=== PATIENT | female | born 1990 | race Hispanic/Latino ===

== ENCOUNTER 2018-07-09 16:24 | Emergency (ER) | payer BC ==
[2018-07-09 16:29] VITALS: BP 132/83; PULSE 73; TEMP 98.1; O2SAT 95
[2018-07-09 16:52] VITALS: RESP 16
--- NOTE | 2018-07-09 17:44 | ED PDOC ---
HPI: Female Pain Time Seen by Provider: 07/09/18 17:10 Chief Complaint (Nursing): Female Genitourinary Chief Complaint (Provider): Vag bleeding History Per: Patient History/Exam Limitations: no limitations Additional Complaint(s): Pt who presents with vaginal bleeding with clots X 1 day, associated with crampy abdominal pain. No pain at present. Pt had blood work done on 07/07/18 beta hCG 26. Past Medical History Reviewed: Nursing Documentation, Vital Signs Vital Signs: Last Vital Signs Temp 98.1 F 07/09/18 16:40 Pulse 73 07/09/18 16:40 Resp 16 07/09/18 16:40 BP 132/83 07/09/18 16:40 Pulse Ox 95 07/09/18 16:40 - Medical History PMH: No Chronic Diseases - Surgical History Surgical History: No Surg Hx, Tonsillectomy (2016) - Family History Family History: States: Unknown Family Hx - Social History Current smoker - smoking cessation education provided: No Alcohol: None - Immunization History Hx Tetanus Toxoid Vaccination: No Hx Influenza Vaccination: No Hx Pneumococcal Vaccination: No - Allergies Allergies/Adverse Reactions: Allergies Allergy/AdvReac Type Severity Reaction Status Date / Time No Known Allergies Allergy Verified 07/09/18 16:48 Review of Systems Constitutional: Negative for: Fever Cardiovascular: Negative for: Chest Pain Respiratory: Negative for: Cough, Shortness of Breath Gastrointestinal: Positive for: Abdominal Pain. Negative for: Nausea, Vomiting, Diarrhea Genitourinary Female: Positive for: Vaginal Bleeding. Negative for: Dysuria, Hematuria, Vaginal Discharge Physical Exam - Reviewed Nursing Documentation Reviewed: Yes Vital Signs Reviewed: Yes - Physical Exam Appears: Positive for: Well, No Acute Distress Skin: Positive for: Normal Color, Warm, Dry Eye Exam: Positive for: Normal appearance, EOMI, PERRL Cardiovascular/Chest: Positive for: Regular Rate, Rhythm Respiratory: Positive for: Normal Breath Sounds Gastrointestinal/Abdominal: Positive for: Bowel Sounds, Soft, Tenderness (Mild R pelvic pain). Negative for: Guarding, Rebound Back: Positive for: Normal Inspection Extremity: Positive for: Normal ROM Neurologic/Psych: Positive for: Alert, Oriented - Laboratory Results Result Diagrams: 07/09/18 18:30 07/09/18 18:30 - ECG O2 Sat by Pulse Oximetry: 95 Medical Decision Making Medical Decision Makin yo with vaginal bleeding. - labs - pelvic ultrasound Labs and ultrasound findings discussed with patient in detail. Copy of labs and imaging given to patient. 20:[address] Strauss, recommends follow-up in 2 days for repeat bloodwork. Disposition - Clinical Impression Clinical Impression: Spontaneous - Disposition Referrals: Chris Strauss MD [Non-Staff] - Disposition: Routine/Home Disposition Time: 20:37 Condition: STABLE Additional Instructions: FOLLOW-UP WITH DR. STRAUSS IN 2 DAYS FOR REPEAT BETA. Instructions: Miscarriage, Dealing With Miscarriage Forms: [facility] (Citizen [place])
--- NOTE | 2018-07-09 18:39 | US ---
Date of service: 07/09/2018 HISTORY: Abd pain, vag bleeding COMPARISON: None available. TECHNIQUE: Transvaginal only. Real -time technique with 2D, duplex and color Doppler FINDINGS: UTERUS: Measures 4.3 x 3.7 x 6.8 cm. Normal in size and appearance. No fibroid or other mass lesion seen. ENDOMETRIUM: Measures 5.0 mm in diameter. No ultrasound findings to suggest gestational sac, fluid, debris, mass or polyp or other pathologic process within the endometrium. CERVIX: No cervical abnormality identified. Closed cervix 4.4 cm. Incidental finding: Nabothian cysts the largest measures less than 1 cm RIGHT OVARY: Measures 2.1 x 2.1 x 3.7 cm. No solid mass. Normal flow. Complex cyst likely hemorrhagic 1.9 x 1.8 cm. No visible products of conception LEFT OVARY: Measures 2.2 x 1.3 x 3.0 cm. No solid mass. Normal flow. FREE FLUID: No significant free fluid noted. OTHER FINDINGS: No visible intrauterine or ectopic products of conception. Additional benign and/or incidental findings described above. IMPRESSION: Unremarkable pelvic ultrasound.
[2018-07-09 18:52] LABS: BASO # 0.1 K/uL (0.0-0.2); BASO % 0.8 % (0.0-2.0); EOS # 0.1 K/uL (0.0-0.7); EOS % 1.2 % (0.0-4.0); HEMOGLOBIN 13.9 g/dL (12.0-16.0); LYMPH # 1.8 K/uL (1.0-4.3); LYMPH % 23.5 % (20.0-40.0); MEAN CELL VOLUME 87.2 fl (81.0-99.0); MEAN CORPUSCULAR HEMOGLOBIN 29.3 pg (27.0-31.0); MEAN CORPUSCULAR HGB CONC 33.6 g/dL (33.0-37.0); MEAN PLATELET VOLUME 7.8 fl (7.2-11.7); MONO # 0.4 K/uL (0.0-0.8); MONO % 5.8 % (0.0-10.0); NEUT # 5.3 K/uL (1.8-7.0); NEUT % 68.7 % (50.0-75.0); NRBC % 0.1 % (0.0-0.0); RBC 4.73 Mil/uL (3.80-5.20); RED CELL DISTRIBUTION WIDTH 12.6 % (11.5-14.5); WHITE BLOOD COUNT 7.7 K/uL (4.8-10.8)
[2018-07-09 18:54] LABS: SQUAMOUS EPITHIAL 1 /hpf (0-5); URINE BACTERIA RARE (<OCC); URINE BILIRUBIN NEGATIVE (NEGATIVE); URINE BLOOD LARGE (NEGATIVE); URINE CLARITY CLEAR (Clear); URINE COLOR YELLOW (YELLOW); URINE GLUCOSE (UA) NEG (NEGATIVE); URINE LEUKOCYTE ESTERASE NEG Leu/uL (Negative); URINE PROTEIN NEGATIVE (NEGATIVE); URINE UROBILINOGEN 0.2-1.0 mg/dL (0.2-1.0)
[2018-07-09 18:57] LABS: ALB/GLOB RATIO 1.3 (1.0-2.1); ALBUMIN 4.9 g/dL (3.5-5.0); ALT/SGPT 55 U/L (9-52); AST/SGOT 47 U/L (14-36); BLOOD UREA NITROGEN 10 mg/dl (7-17); CALCIUM 9.3 mg/dL (8.4-10.2); GFR NON-AFRICAN AMERICAN > 60
[2018-07-09 19:09] LABS: INR 0.9; PROTHROMBIN TIME 10.7 Seconds (9.8-13.1)
[2018-07-09 19:12] LABS: PARTIAL THROMBOPLASTIN TIME 33.7 Seconds (25.6-37.1)
== END 2018-07-09 20:55 | disposition home or self-care (01) ==
LOC: H.ER 16:24
DX: O03.9 Complete or unspecified spontaneous abortion without complication (principal)